=== PATIENT | female | born 1990 | race Caucasian/White ===

== ENCOUNTER 2021-02-08 14:04 | Emergency (ER) | payer OTHER ==
[2021-02-08 14:19] VITALS: BP 127/83; PULSE 107; O2SAT 98
--- NOTE | 2021-02-08 14:54 | XRAY ---
Indication: Pain following fall. Comparison: None 3 view left ankle obtained. No bony, articular, or soft tissue abnormalities.
--- NOTE | 2021-02-08 15:11 | ERPHSYRPT ---
- History of Present Illness Time Seen by Provider: 02/08/21 14:05 Source: patient Exam Limitations: no limitations Patient Subjective Stated Complaint: Pt fell on her steps at home and injured her left lateral ankle Triage Nursing Assessment: Pt was brought to the ER by her neighbor, tachycardic, left lateral ankle swollen, pulses normal, cap refill normal, denies hitting her head, denies any other injuries Physician History: 30 years old female presented in the ER with chief complaint of left ankle pain after she missed a step leading to fall and twisted her ankle. She did not hear any popping/snapping sound, was able to get up and ambulate but complaining of sharp pain left lateral ankle with some swelling, aggravated with ambulation better with resting and ice. No injury anywhere else. Method of Injury: fell, twisted Occurred: just prior to arrival Quality: sharpness Severity of Pain-Max: moderate Severity of Pain-Current: moderate Lower Extremities Pain: ankle: left Modifying Factors: Improves With: immobilization, rest. Worsens With: movement Associated Symptoms: No snapping sensation, No popping sensation Allergies/Adverse Reactions: codeine Allergy (Verified 02/08/21 14:20) Home Medications: PARoxetine HCl [Paxil] 40 mg PO DAILY 02/08/21 [History] Hx Tetanus, Diphtheria Vaccination/Date Given: No Travel Risk - International Travel Have you traveled outside of the country in past 3 weeks: No - Coronavirus Screening Are you exhibiting any of the following symptoms?: No Close contact with a COVID-19 positive Pt in past 14-21 Days: No - Review of Systems Constitutional: No Symptoms Eyes: No Symptoms Ears, Nose, & Throat: No Symptoms Respiratory: No Symptoms Cardiac: No Symptoms Abdominal/Gastrointestinal: No Symptoms Genitourinary Symptoms: No Symptoms Musculoskeletal: Injury, Joint Pain, Joint Swelling Skin: No Symptoms Neurological: No Symptoms Psychological: No Symptoms Endocrine: No Symptoms Hematologic/Lymphatic: No Symptoms - Past Medical History Pertinent Past Medical History: Yes Psycho-Social History: Anxiety, Depression - Past Surgical History Past Surgical History: Yes Musculoskeletal: Orthopedic Surgery Female Surgical History: Section, Tubal Ligation Other Surgical History: norman in right hip - Social History Smoking Status: Never smoker Exposure to second hand smoke: No Drug Use: none Patient Lives Alone: No - Female History Hx Now: No (tubal) - Nursing Vital Signs Nursing Vital Signs: Initial Vital Signs Temperature 97.9 F 02/08/21 14:08 Pulse Rate 107 H 02/08/21 14:08 Blood Pressure 127/83 02/08/21 14:08 O2 Sat by Pulse Oximetry 98 02/08/21 14:08 Pain Scale Pain Intensity 6 - Physical Exam General Appearance: no apparent distress Eyes, Ears, Nose, Throat Exam: normal ENT inspection, pharynx normal Neck Exam: normal inspection, non-tender, supple Cardiovascular/Respiratory Exam: chest non-tender Gastrointestinal/Abdominal Exam: non-tender, soft Back Exam: normal inspection, normal range of motion Hips Exam: bilateral: non-tender, normal inspection, normal range of motion Legs Exam: bilateral leg: non-tender, normal inspection, normal range of motion Knees Exam: bilateral knee: non-tender Ankle Exam: right ankle: non-tender, normal inspection, normal range of motion, no evidence of injury, left ankle: bone tenderness (Lateral malleolus), pain, soft tissue tenderness, swelling Foot Exam: bilateral foot: non-tender, normal inspection, normal range of motion, no evidence of injury Neuro/Tendon Exam: normal sensation, normal motor functions, normal tendon functions Mental Status Exam: alert, oriented x 3, cooperative Skin Exam: normal color SpO2 Interpretation: normal SpO2: 98 O2 Delivery: Room Air Ordered Tests: Active Orders 24 hr Category Date Time Status ANKLE (3 VIEWS) Stat Exams 02/08/21 14:41 Completed - Progress Progress: unchanged Progress Note: 02/08/21 15:14 She is offered pain medication which she refused. Ruled out fracture dislocation. I believe patient has ankle sprain, placed in Aircast and NSAIDs to go home and outpatient Ortho follow-up. - Departure Departure Disposition: Home Clinical Impression: Left ankle sprain Qualifiers: Encounter type: initial encounter Involved ligament of ankle: unspecified ligament Qualified Code(s): S93.402A - Sprain of unspecified ligament of left ankle, initial encounter Condition: Stable Critical Care Time: No Referrals: MILLER WEIR [Primary Care Provider] - Follow Up with PCP/3 days ORTHO - ALBERTO ELLINGTON NP [NON-STAFF PHY W/O PRIVILEGES] - (1-2 DAYS FOR RE EVALUATION) Instructions: Ankle Sprain (DC) Additional Instructions: Weightbearing as tolerated. Take Tylenol/ibuprofen as needed. Apply ice. Follow-up with Ortho clinic for reevaluation. Return to ER for worsening.
== END 2021-02-08 15:16 | disposition home or self-care (01) ==
LOC: ED 14:04
DX: S93.402A Sprain of unspecified ligament of left ankle, initial encounter (principal); W10.9XXA Fall (on) (from) unspecified stairs and steps, initial encounter; Y93.9 Activity, unspecified; X50.1XXA Overexertion from prolonged static or awkward postures, initial encounter; Y92.009 Unspecified place in unspecified non-institutional (private) residence as the place of occurrence of the external cause; M25.572 Pain in left ankle and joints of left foot; M25.472 Effusion, left ankle; F41.8 Other specified anxiety disorders
CPT/HCPCS: 73610; 99283